=== PATIENT | male | born 1935 | race Caucasian/White ===

== ENCOUNTER 2019-03-20 09:49 | Emergency (ER) | payer BC, MEDICARE ==
[~2019-03-20] VITALS: Ht 190.5 cm; Wt 74.8 kg
[2019-03-20 10:13] LABS: BASOPHILS ABSOLUTE AUTO 0.04 K/mm3 (0.00-0.23); BASOPHILS PERCENT AUTO 1 % (0-2); EOSINOPHILS ABSOLUTE AUTO 0.23 K/mm3 (0.00-0.68); EOSINOPHILS PERCENT AUTO 3 % (0-6); Hematocrit 31.6 % (37.0-53.0); Hemoglobin 10.1 g/dL (13.5-17.5); IMMATURE GRAN ABSOLUTE AUTO 0.05 K/mm3 (0.00-0.10); IMMATURE GRAN PERCENT AUTO 1 % (0-1); LYMPHOCYTES ABSOLUTE AUTO 0.78 K/mm3 (0.84-5.20); LYMPHOCYTES PERCENT AUTO 9 % (21-46); MONOCYTES ABSOLUTE AUTO 0.54 K/mm3 (0.16-1.47); MONOCYTES PERCENT AUTO 6 % (4-13); Mean Corpuscular HGB 32.3 pg (26.0-34.0); Mean Corpuscular Volume 101 fL (80-100); Mean Platelet Volume 9.7 fL (9.1-12.4); NEUTROPHILS ABSOLUTE AUTO 6.77 K/mm3 (1.96-9.15); NEUTROPHILS PERCENT AUTO 81 % (41-73); Platelet Count 312 K/mm3 (150-400); RDW Coefficient Variation 13.7 % (11.7-14.2); RDW Standard Deviation 50.4 fL (35.1-46.3); Red Blood Cell Count 3.13 M/mm3 (4.30-5.90); White Blood Cell Count 8.41 K/mm3 (4.00-11.30)
[2019-03-20] MEDS ORDERED: LEVO-T50 MC1 (10:26)
[2019-03-20] MEDS ORDERED: TICA90TA (10:26)
[2019-03-20] MEDS ORDERED: GABA100 PO (10:26)
[2019-03-20] MEDS ORDERED: POTA10T PO (10:26)
[2019-03-20] MEDS ORDERED: Ropinirole HCl1 MG PO (10:26)
[2019-03-20] MEDS ORDERED: ATOR80 PO (10:27)
[2019-03-20] MEDS ORDERED: PRED5 PO (10:27)
[2019-03-20] MEDS ORDERED: FINA5 PO (10:27)
[2019-03-20] MEDS ORDERED: CELE200 PO (10:27)
[2019-03-20] MEDS ORDERED: FERSU300 PO (10:27)
[2019-03-20] MEDS ORDERED: Beta Carot10000 UNIT PO (10:28)
[2019-03-20] MEDS ORDERED: DOCU100 PO (10:28)
[2019-03-20] MEDS ORDERED: DIPH50 PO (10:28)
[2019-03-20 10:29] LABS: Alanine Aminotransfer (ALT/SGP 16 U/L (12-78); Albumin/Globulin Ratio 0.8 (0.8-1.8); Alk Phos 79 U/L (50-136); Anion Gap 4 mmol/L (6-16); Aspartate Aminotrans (AST/SGOT 16 U/L (12-37); Bilirubin, Total 0.4 mg/dL (0.1-1.0); Blood Urea Nitrogen 16 mg/dL (8-24); Bun/Creatinine Ratio 23.3 (12.0-20.0); CO2, Blood 25 mmol/L (21-32); Calcium, Blood 8.6 mg/dL (8.5-10.1); Chloride, Blood 109 mmol/L (98-108); Creatinine, Blood 0.69 mg/dL (0.60-1.20); Globulin, Blood 3.9 g/dL (2.2-4.0); Glomerular Filtration Rate >60 (60-); Glucose, Blood 108 mg/dL (70-99); Potassium, Blood 4.1 mmol/L (3.5-5.5); Sodium, Blood 138 mmol/L (136-145); Total Protein, Blood 6.9 g/dL (6.4-8.2); Troponin I <0.015 ng/mL (0.000-0.040)
[2019-03-20 11:45] LABS: Source, Urine Clean Catch
[2019-03-20 11:48] LABS: Appearance, Urine Clear (Clear); Bilirubin, Urine Neg (Neg); Blood, Urine Neg (Neg); Color, Urine Yellow (P-Yellow); Glucose Qualitative, Urine Neg (Neg); Ketones, Urine Neg (Neg); Leukocyte Esterase, Urine Neg (Neg); Nitrite, Urine Neg (Neg); Protein, Urine Neg (Neg); Urobilinogen, Urine NORM (Normal)
[2019-03-20] MEDS ORDERED: Zithromax250 MG PO (12:02)
== END 2019-03-20 12:43 | disposition home or self-care (01) ==
LOC: ER 09:49
PROVIDERS: Emergency Medicine
DX: R55 Syncope and collapse (principal); J18.9 Pneumonia, unspecified organism; Z79.899 Other long term (current) drug therapy; Z79.52 Long term (current) use of systemic steroids; Z86.73 Personal history of transient ischemic attack (TIA), and cerebral infarction without residual deficits
CPT/HCPCS: 71046; 80053; 81003; 83880; 84484; 85025; 93005; 93010; 96374; 99284-25; J0696; J7030

== ENCOUNTER 2019-04-28 07:54 | Emergency (ER) | payer MEDICARE ==
[~2019-04-28] VITALS: Ht 185.4 cm; Wt 77.1 kg
[~2019-04-28 07:54] MED LIST: ATOR80 PO; Beta Carot10000 UNIT PO; CELE200 PO; DIPH50 PO; DOCU100 PO; FERSU300 PO; FINA5 PO; GABA100 PO; LEVO-T50 MC1; POTA10T PO; PRED5 PO; Ropinirole HCl1 MG PO; TICA90TA; Zithromax250 MG PO
[2019-04-28 08:38] LABS: BASOPHILS ABSOLUTE AUTO 0.06 K/mm3 (0.00-0.23); BASOPHILS PERCENT AUTO 1 % (0-2); EOSINOPHILS ABSOLUTE AUTO 0.18 K/mm3 (0.00-0.68); EOSINOPHILS PERCENT AUTO 2 % (0-6); Hematocrit 27.7 % (37.0-53.0); Hemoglobin 8.8 g/dL (13.5-17.5); IMMATURE GRAN ABSOLUTE AUTO 0.03 K/mm3 (0.00-0.10); IMMATURE GRAN PERCENT AUTO 0 % (0-1); LYMPHOCYTES ABSOLUTE AUTO 0.72 K/mm3 (0.84-5.20); LYMPHOCYTES PERCENT AUTO 8 % (21-46); MONOCYTES ABSOLUTE AUTO 1.02 K/mm3 (0.16-1.47); MONOCYTES PERCENT AUTO 11 % (4-13); Mean Corpuscular HGB 31.3 pg (26.0-34.0); Mean Corpuscular HGB Conc 31.8 g/dL (31.5-36.5); Mean Corpuscular Volume 99 fL (80-100); NEUTROPHILS ABSOLUTE AUTO 6.98 K/mm3 (1.96-9.15); NEUTROPHILS PERCENT AUTO 78 % (41-73); Platelet Count 346 K/mm3 (150-400); RDW Coefficient Variation 13.8 % (11.7-14.2); RDW Standard Deviation 50.3 fL (35.1-46.3); Red Blood Cell Count 2.81 M/mm3 (4.30-5.90); White Blood Cell Count 8.99 K/mm3 (4.00-11.30)
[2019-04-28 09:02] LABS: Alanine Aminotransfer (ALT/SGP 17 U/L (12-78); Albumin, Blood 2.8 g/dL (3.4-5.0); Albumin/Globulin Ratio 0.6 (0.8-1.8); Alk Phos 108 U/L (50-136); Anion Gap 6 mmol/L (6-16); Aspartate Aminotrans (AST/SGOT 16 U/L (12-37); Bilirubin, Total 0.4 mg/dL (0.1-1.0); Blood Urea Nitrogen 25 mg/dL (8-24); Bun/Creatinine Ratio 30.3 (12.0-20.0); CO2, Blood 27 mmol/L (21-32); Calcium, Blood 8.7 mg/dL (8.5-10.1); Chloride, Blood 108 mmol/L (98-108); Creatinine, Blood 0.82 mg/dL (0.60-1.20); Globulin, Blood 4.4 g/dL (2.2-4.0); Glomerular Filtration Rate >60 (60-); Glucose, Blood 85 mg/dL (70-99); Potassium, Blood 3.3 mmol/L (3.5-5.5); Sodium, Blood 141 mmol/L (136-145); Total Protein, Blood 7.2 g/dL (6.4-8.2); Troponin I <0.015 ng/mL (0.000-0.040)
[2019-04-28 09:32] LABS: Source, Urine Clean Catch
[2019-04-28 09:38] LABS: Bilirubin, Urine Neg (Neg); Blood, Urine Neg (Neg); Glucose Qualitative, Urine Neg (Neg); Ketones, Urine Neg (Neg); Leukocyte Esterase, Urine Neg (Neg); Nitrite, Urine Neg (Neg); Protein, Urine Neg (Neg); Urobilinogen, Urine NORM (Normal)
[2019-04-28 09:40] LABS: Appearance, Urine Clear (Clear); Color, Urine Yellow (P-Yellow)
[2019-04-28] MEDS ORDERED: K-Dur10 MEQ PO (10:11)
== END 2019-04-28 11:31 | disposition home or self-care (01) ==
LOC: ER 07:54
PROVIDERS: Emergency Medicine
DX: D64.9 Anemia, unspecified (principal); E87.6 Hypokalemia; E78.00 Pure hypercholesterolemia, unspecified; I25.2 Old myocardial infarction; Z79.899 Other long term (current) drug therapy
CPT/HCPCS: 36415; 71046; 80053; 81003; 82272; 83735; 83880; 84484; 85025; 93005; 93010; 99285-25

== ENCOUNTER 2019-05-26 13:26 | Inpatient (IN) | payer MEDICARE, BC ==
[~2019-05-26] VITALS: Ht 185.4 cm; Wt 72.2 kg
[~2019-05-26 13:26] MED LIST changes: -ATOR80 PO; -Beta Carot10000 UNIT PO; -CELE200 PO; -DIPH50 PO; -DOCU100 PO; -FINA5 PO; -GABA100 PO; +K-Dur10 MEQ PO; -LEVO-T50 MC1; -POTA10T PO; -Ropinirole HCl1 MG PO; -TICA90TA
[2019-05-26 13:59] LABS: Source, Urine Clean Catch
[2019-05-26 13:59] LABS: BASOPHILS ABSOLUTE AUTO 0.04 K/mm3 (0.00-0.23); BASOPHILS PERCENT AUTO 0 % (0-2); EOSINOPHILS ABSOLUTE AUTO 0.07 K/mm3 (0.00-0.68); EOSINOPHILS PERCENT AUTO 1 % (0-6); Hematocrit 33.2 % (37.0-53.0); Hemoglobin 10.4 g/dL (13.5-17.5); IMMATURE GRAN ABSOLUTE AUTO 0.04 K/mm3 (0.00-0.10); IMMATURE GRAN PERCENT AUTO 0 % (0-1); LYMPHOCYTES ABSOLUTE AUTO 0.41 K/mm3 (0.84-5.20); LYMPHOCYTES PERCENT AUTO 3 % (21-46); MONOCYTES ABSOLUTE AUTO 0.75 K/mm3 (0.16-1.47); MONOCYTES PERCENT AUTO 6 % (4-13); Mean Corpuscular HGB Conc 31.3 g/dL (31.5-36.5); Mean Corpuscular Volume 96 fL (80-100); Mean Platelet Volume 9.8 fL (9.1-12.4); NEUTROPHILS ABSOLUTE AUTO 11.05 K/mm3 (1.96-9.15); NEUTROPHILS PERCENT AUTO 89 % (41-73); Platelet Count 438 K/mm3 (150-400); RDW Coefficient Variation 14.2 % (11.7-14.2); RDW Standard Deviation 49.9 fL (35.1-46.3); Red Blood Cell Count 3.47 M/mm3 (4.30-5.90); White Blood Cell Count 12.36 K/mm3 (4.00-11.30)
[2019-05-26 14:04] LABS: Bilirubin, Urine Neg (Neg); Blood, Urine Neg (Neg); Glucose Qualitative, Urine Neg (Neg); Ketones, Urine Neg (Neg); Leukocyte Esterase, Urine Neg (Neg); Nitrite, Urine Neg (Neg); Protein, Urine Neg (Neg); Urobilinogen, Urine NORM (Normal)
[2019-05-26 14:05] LABS: Appearance, Urine Clear (Clear); Color, Urine Yellow (P-Yellow)
[2019-05-26 14:39] LABS: Alanine Aminotransfer (ALT/SGP 20 U/L (12-78); Albumin, Blood 2.6 g/dL (3.4-5.0); Albumin/Globulin Ratio 0.5 (0.8-1.8); Alk Phos 97 U/L (50-136); Anion Gap 5 mmol/L (6-16); Aspartate Aminotrans (AST/SGOT 25 U/L (12-37); Bilirubin, Total 0.5 mg/dL (0.1-1.0); Blood Urea Nitrogen 25 mg/dL (8-24); Bun/Creatinine Ratio 38.2 (12.0-20.0); CO2, Blood 25 mmol/L (21-32); Chloride, Blood 109 mmol/L (98-108); Creatinine, Blood 0.66 mg/dL (0.60-1.20); Globulin, Blood 5.2 g/dL (2.2-4.0); Glomerular Filtration Rate >60 (60-); Glucose, Blood 170 mg/dL (70-99); Sodium, Blood 139 mmol/L (136-145); Total Protein, Blood 7.8 g/dL (6.4-8.2)
--- NOTE | 2019-05-26 16:34 | NUR ---
ED Palliative Care Consult Spoke with ED Provider Sarah and discussed case. Pt resting on gurney upon arrival. Pt's nephew Romario is present during visit. Pt reports 6/10 pain due to his restless leg syndrome. Pt denies SOB, nausea, and dyspnea. Engaged in therapeutic discussion regarding goals of care. Pt is agreeable to being admitted to hospital if appropriate. Listened as Romario reports seeing a gradual decline with Pt. oRmario reports this AM was a significant change. Pt has had right sided defecit for some time and the left sided defecit including facial droop is new. Pt is able to ambulate with a walker but has experienced multiple falls and falls asleep sitting up. Pt struggles with dressing himself. No significant change in appetite. Listened as goals stated of admission to hospital if appropriate, then SNF for rehabilitation if appropriate or home health. Romario reports understanding that at some point in the future Pt may need to be transitioned to hospice. Family has been discussing this with Pt a little at a time for Pt acceptance. Family is also requesting a hospital bed. No other concerns reported at this time. Spoke with Sarah and relayed goals. Spoke with Ken Mendez and relayed goals for Pt. Palliative Care will remain available.
[2019-05-26] MEDS ORDERED: REQUIP5 M1 PO (16:51)
[2019-05-26] MEDS ORDERED: EUTHYROX50 MCG PO (16:52)
[2019-05-26] MEDS ORDERED: FINA5 PO (16:52)
[2019-05-26] MEDS ORDERED: CELECOXIB200 M1 PO (16:52)
[2019-05-26] MEDS ORDERED: BRILINTA90 MG PO (16:53)
[2019-05-26] MEDS ORDERED: POTA10T PO (16:54)
[2019-05-26] MEDS ORDERED: TEMA30 PO (16:55)
[2019-05-26] MEDS ORDERED: GABA100 PO (16:57)
[2019-05-26] MEDS ORDERED: OMEP20ER PO (16:57)
[2019-05-26] MEDS ORDERED: FURO20 PO (16:57)
[2019-05-26] MEDS ORDERED: ATOR80 PO (16:58)
[2019-05-26] MEDS ORDERED: ASPI325EC PO (16:59)
[2019-05-26] MEDS ORDERED: Beta Carot10000 UNIT PO (17:00)
[2019-05-26] MEDS ORDERED: PRAM.5 PO (17:22)
[2019-05-26] MEDS ORDERED: BENADRYL25 MG PO (17:23)
[2019-05-26] MEDS ORDERED: DOCU100 PO (17:23)
[2019-05-26] MEDS ORDERED: CENTRUM SILVER1 EAC2 PO (17:24)
[2019-05-26 18:03] LABS: CHOL/HDL RATIO 4.6; Cholesterol 169 mg/dL (50-200); HDL Cholesterol 37 mg/dL (>39); LDL/HDL RATIO 3.1; Low Density Lipoprotein Chol 116 mg/dL (0-110); Triglycerides 78 mg/dL (30-160); Very Low Density Lipoprot Chol 15 mg/dL (6-32)
--- NOTE | 2019-05-26 19:10 | NUR ---
PATIENT ARRIVES ABOUT 1830. LINEN AND CLOTHES SATURATED W/URINE. CHANGED. WARM BLANKETS. ALERT. ORIENTED. UNABLE TO USE ARMS TO FEED HIMSELF. ASSISTED W/MEAL. NO COUGHING AFTER DRINKING. ORIENTED TO ROOM. ADMIT DONE, BUT ASSESSMENT NOT DONE BY THIS RN. REPORT TO NIGHT RN
[2019-05-27 04:51] LABS: BASOPHILS ABSOLUTE AUTO 0.02 K/mm3 (0.00-0.23); BASOPHILS PERCENT AUTO 0 % (0-2); EOSINOPHILS ABSOLUTE AUTO 0.08 K/mm3 (0.00-0.68); EOSINOPHILS PERCENT AUTO 1 % (0-6); Hematocrit 28.1 % (37.0-53.0); Hemoglobin 8.9 g/dL (13.5-17.5); IMMATURE GRAN ABSOLUTE AUTO 0.02 K/mm3 (0.00-0.10); IMMATURE GRAN PERCENT AUTO 0 % (0-1); LYMPHOCYTES ABSOLUTE AUTO 0.66 K/mm3 (0.84-5.20); LYMPHOCYTES PERCENT AUTO 8 % (21-46); MONOCYTES ABSOLUTE AUTO 0.73 K/mm3 (0.16-1.47); MONOCYTES PERCENT AUTO 9 % (4-13); Mean Corpuscular HGB 30.1 pg (26.0-34.0); Mean Corpuscular HGB Conc 31.7 g/dL (31.5-36.5); Mean Corpuscular Volume 95 fL (80-100); Mean Platelet Volume 9.9 fL (9.1-12.4); NEUTROPHILS PERCENT AUTO 82 % (41-73); Platelet Count 364 K/mm3 (150-400); RDW Coefficient Variation 14.3 % (11.7-14.2); RDW Standard Deviation 49.4 fL (35.1-46.3); Red Blood Cell Count 2.96 M/mm3 (4.30-5.90); White Blood Cell Count 8.41 K/mm3 (4.00-11.30)
[2019-05-27 05:06] LABS: Anion Gap 6 mmol/L (6-16); Blood Urea Nitrogen 18 mg/dL (8-24); Bun/Creatinine Ratio 27.5 (12.0-20.0); CO2, Blood 27 mmol/L (21-32); Calcium, Blood 8.7 mg/dL (8.5-10.1); Chloride, Blood 110 mmol/L (98-108); Creatinine, Blood 0.66 mg/dL (0.60-1.20); Glomerular Filtration Rate >60 (60-); Glucose, Blood 91 mg/dL (70-99); Sodium, Blood 143 mmol/L (136-145)
--- NOTE | 2019-05-27 05:53 | NUR ---
SHIFT SUMMARY PATIENT ALERT AND ORIENTED X4. PICTURES TAKEN OF THE SKIN ON PATIENT'S LOWER LEGS. CONSENT FORM AND PHOTOS PLACED IN PATIENT'S CHART. PATIENT PLACED ON TELE AND IS RUNNING SINUS RHYTHM AT 74 WITH PAC'S. IV PATENT AND CURRENTLY INFUSING WITH NORMAL SALINE AT 75 ML/HR. BED IN LOWEST POSITION WITH WHEELS LOCKED AND ALARM ON. CALL LIGHT WITHIN REACH. REPORT GIVEN TO ONCOMING RN.
--- NOTE | 2019-05-27 09:51 | NUR ---
Echocardiogram using 28.0ml of agitated saline contrast performed.
--- NOTE | 2019-05-27 11:16 | NUR ---
Pt resting in bed with his eyes closed upon arrival. Pt wakes with gentle verbal stimuli but appears lethargic. Pt denies pain and dyspnea. Pt cloeses his eyes again. Pt appears comfortable with no S/S of distress at this time. Spoke with ST and she is recommending puree diet at this time. Spoke with Bedside RN April abbott discussed case. Spoke with Bicycle Rental Clerk Meghan and relayed family's goals including prescription for hospital bed. Palliative Care will remain available.
--- NOTE | 2019-05-27 15:49 | NUR ---
PATIENT RESTING MOST OF DAY. AWAKENS TO GENTLE STIMULI. DENIES PAIN OR NEEDS WHEN AWAKENED. DISCUSS GOING TO SNF FOR REHAB AND WHEN ADVISED OF THE 2 REHABS IN THIS AREA STS HE WISHES HIS NEPHEW, UDAY, TO MAKE THE DECISION. [facility] MIDDLETON CALLED AND INFORMED. UDAY'S NAME AND NUMBER PLACED ON WHITE BOARD PRIMARY DECISION MAKER. IV PATENT. PATENT QUESTIONS WHY FOOD, FLUID AND MEDS CONSISTENCY CHANGED. DISCUSSED SWALLOWING DIFFICULTY AND PAIN IN JAW TO WHICH PATIENT RESPONDS WITH JAW FEELS LITTLE BETTER W/NEW CONSISTENCY. TELE ON. VERY SLIGHT DEVIATION OF TONGUE . FACE APPEARS SYMMETRICAL. POLICE STENOGRAPHER BOTH WEAK AND VERY DIFFICULT TO TELL IF ONE IS WEAKER THAN THE OTHER. COOPERATIVE. PLEASANT. UNLABORED RESPIRATIONS. WCTM.
--- NOTE | 2019-05-28 04:04 | NUR ---
SHIFT SUMMARY: 58 Y/O MALE RESTED COMFORTABLY IN BED ALL SHIFT; PT REQUIRES SUPERVISION WITH ALL MEALS AND ASSISTANCE WITH EATING AND DRINKING; HAPPY AND COOPERATIVE; DENIES PAIN OR NAUSEA; BED ALARM APPLIED, BED LOW POSITION WITH CALL LIGHT AT SIDE.
--- NOTE | 2019-05-28 18:16 | NUR ---
SHIFT SUMMARY- PT A/OX4. 2 ASSIST OUT OF BED. PT MEDICATED X1 WITH TYLENOL FOR ARTHRITIC PAIN. LS CLEAR, ON RA. TELE SR WITH BBB AND PAC'S AT 74. PT WITH MILD WEAKER LEFT UPPER EXTREMETY. INCONT OF URINE. PT AWAITING SNF BED AT THIS TIME. NO OTHER ACUTE CHANGES THIS SHIFT.
--- NOTE | 2019-05-29 05:57 | NUR ---
SHIFT SUMMARY PT HAD DIFFICULT NIGHT. SHARP ARTHRITIC PAINS TO BLE'S GOT INCREASINGLY WORSE THROUGHOUT THE NIGHT. ATTEMPTED REPOSITIONING AND PROVIDING HEAT TO LOWER EXTREMETIES. NIGHTTIME NEURONTIN AND REQUIP GIVEN, HOWEVER PT REPORTED THAT THE PAIN CONTINUED TO WORSEN. RUTHY VAZQUEZ NOTIFIED. NEW ORDER FOR ULTRAM 50 MG X [address] ICE ON LOWER BACK, BELIEVING THIS WAS SCIATIC RELATED. PT DID NOT TOLERATE ICE PACK WELL. REQUESTED TO GET UP IN THE CHAIR. PAIN IMPROVED ONCE UP IN CHAIR AND CONTINUED TO IMPROVE ULTRAM BECAME EFFECTIVE. PT SLEPT UP IN CHAIR FOR QUITE A FEW HOURS UNTIL REQUESTING TO GO BACK TO BED. ARTHRITIC PAIN BEGINNING TO RETURN THIS AM. MEDICATED W 650 MG TYLENOL. PT SWALLOWED PILLS WELL CRUSHED IN APPLESAUCE, HOWEVER PT WAS ABLE TO TAKE SMALL ONES WHOLE IN APPLESAUCE. DRESSING TO LLE REMAINED CLEAN, DRY, AND INTACT. VITAL SIGNS STABLE. WILL CONTINUE TO MONITOR AND REPORT TO DAY RN.
--- NOTE | 2019-05-29 18:17 | NUR ---
PATIENT A/OX4, UP WITH FWW AND 2 ASSIST TO CHAIR. INCONTINENT OF URINE. VSS, ON RA. SEVERE RESTLESS LEGS, TAKES REQUIP TO TREAT. SKIN DRY/SCALING TO BLE, WOUND TO POSTERIOR L LEG WITH MEIPLEX COVERING. TOLERATING PUREE DIET WITH NECTAR THICK LIQUIDS. NEEDS SUPERVISION AND ASSISTANCE WITH MEALS. NO ACUTE CHANGES THIS SHIFT. PLAN IS TO DC TO A SNF TOMORROW.
--- NOTE | 2019-05-30 04:44 | NUR ---
SHIFT SUMMARY PT HAD MUCH BETTER EVENING. SLEPT BETTER TONIGHT. PT WENT BETWEEN RECLINER AND BED AND SLEPT IN EACH UNTIL HE BECOME UNCOMFORTABLE AND WOULD SWITCH. MEDICATED X 1 W/ TYLENOL BEFORE BED. PT TRANSFERS WITH FWW AND 1-2 PERSON ASSIST DEPENDING UPON HOW WEAK OR TIRED HE IS FEELING. ENCOURAGED ORAL INTAKE. PT DRANK APPROX 1/2 A CUP OF NECTAR THICK ORANGE JUICE AND THEN DID NOT WANT ANYMORE. OTHERWISE NO ACUTE CHANGES. PT RESTING IN BED AT THIS TIME. VITAL SIGNS STABLE. PLAN FOR POSSIBLE D/C TO SNF TODAY. WILL CONTINUE TO MONITOR.
--- NOTE | 2019-05-30 17:03 | NUR ---
PATIENT DISCHARGE: PATIENT DISCHARGED/XFR TO SNF ([facility]) THIS SHIFT. MEDICATION RECONCILIATION COMPLETED; MED LIST + HARD SCRIPT PROVIDED IN XFR PACKET. PATIENT TRANSPORTED TO EXIT BY [facility] STAFF WITH WHEELCHAIR AT 1635. REPORT CALLED TO CIELO JEFF, AT . PATIENT DEPARTED [facility] VIA [facility].
== END 2019-05-30 16:47 | DRG 65 ==
LOC: ER 13:26 → MEDS 13:27
PROVIDERS: Physician Assistant; ADMIT Internal Medicine
DX: I63.9 Cerebral infarction, unspecified (principal); G81.94 Hemiplegia, unspecified affecting left nondominant side; N40.0 Benign prostatic hyperplasia without lower urinary tract symptoms; E86.0 Dehydration; F03.90 Unspecified dementia, unspecified severity, without behavioral disturbance, psychotic disturbance, mood disturbance, and anxiety; I25.10 Atherosclerotic heart disease of native coronary artery without angina pectoris; E03.9 Hypothyroidism, unspecified; Z86.73 Personal history of transient ischemic attack (TIA), and cerebral infarction without residual deficits; Z95.1 Presence of aortocoronary bypass graft; Z95.5 Presence of coronary angioplasty implant and graft; R13.10 Dysphagia, unspecified; Z66 Do not resuscitate; R29.810 Facial weakness; Z87.891 Personal history of nicotine dependence
CPT/HCPCS: 36415; 70450; 70496; 70498; 71046; 80048; 80053; 80061; 81003; 83036; 85025; 92526; 92610; 93005; 93010; 93308; 96360; 96361; 96372; 97110; 97116; 97162; 97166; 97530; 97535; 99285-25; A9270; A9270-GY; G0378; J1650; J7030; Q9967